=== PATIENT | male | born 1990 | race Caucasian/White ===

== ENCOUNTER 2016-09-28 08:38 | Emergency (ER) | payer BC ==
[2016-09-28 08:52] VITALS: BP 145/62; PULSE 77; RESP 18; TEMP 98; O2SAT 97
--- NOTE | 2016-09-28 09:03 | UCPHY ---
H & P Time Seen by Provider: 09/28/16 08:45 Patient Type: New HPI/ROS: CHIEF COMPLAINT: Concern for flu History by patient HISTORY OF PRESENT ILLNESS: 25-year-old man presents with 3 days of upper respiratory infection symptoms including runny nose, mild cough, headache, well as subjective hot and cold flashes at home. He has had some intermittent nausea but no vomiting or diarrhea. He denies any stiff neck or rash. He denies myalgias but has had fatigue and has been lying on the couch for the past 2 days. He says he was at a wedding 1 week ago and was exposed to a friend who was sick and called him and told him he tested positive for flu. Patient is a smoker and works at a car [employer]. REVIEW OF SYSTEMS: As in HPI, and all other systems reviewed and are negative Smoking Status: Never smoked Physical Exam: General Appearance: Alert and no distress. Head: normocephalic, atraumatic, no sinus tenderness Eyes: Pupils equal and round no injection. Ears: TM clear bilat OP: mucus membranes moist, mild erythema, no tonsillar enlargement, no exudates Neck: no meningismus, positive right cervical nodes, no submandibular nodes Respiratory: Chest is nontender, lungs are clear to auscultation. Cardiac: regular rate and rhythm. Gastrointestinal: Abdomen is soft and nontender, no masses, bowel sounds normal. Musculoskeletal: Neck is supple and nontender. Extremities have full range of motion and are nontender. Skin: No rashes or lesions. Constitutional: Initial Vital Signs Temperature (C) 36.6 C 09/28/16 08:48 Heart Rate 77 09/28/16 08:48 Respiratory Rate 18 09/28/16 08:48 Blood Pressure 145/62 H 09/28/16 08:48 O2 Sat (%) 97 09/28/16 08:48 O2 Delivery Mode Room Air Allergies/Adverse Reactions: No Known Allergies Allergy (Unverified 09/28/16 08:46) Home Medications: Medication Instructions Recorded NK [No Known Home Meds] 09/28/16 Medical Decision Making ED Course/Re-evaluation: Patient presents with URI symptoms. Patient is positive for influenza B. He is out of the window for treatment with Tamiflu. There is no evidence of respiratory compromise, hypoxia or systemic toxicity. We discussed home care and conservative measures and return precautions. - Data Points Laboratory Results: 09/28/16 08:45 Influenza Typ A,B (DFA) Pending Departure - Departure Disposition: Home, Routine, Self-Care Clinical Impression: Influenza B Condition: Good Instructions: Influenza (ED) Additional Instructions: You were seen by Dr. Comfort Middleton today. Take ibuprofen and Tylenol as needed for fever and body aches. Try hot drinks with honey for sore throat and cough. Return for any worsening or new concerns. Referrals: NONE *PRIMARY CARE P,. [Primary Care Provider] - As per Instructions - PQRS PQRS Measurement: NA
== END 2016-09-28 09:24 | disposition home or self-care (01) ==
LOC: CED 08:38
DX: J09.X2 Influenza due to identified novel influenza A virus with other respiratory manifestations (principal); F17.200 Nicotine dependence, unspecified, uncomplicated
CPT/HCPCS: 87400-PO; G0463-PO